=== PATIENT | female | born 1995 | race Caucasian/White ===

== ENCOUNTER → 2023-03-10 | Outpatient (CLI) | payer OTHER ==
[~2023-03-10] MED LIST: FLEXERIL 1010 MG/TAB PO; MOTRIN 800800 MG/TAB PO; PRENATAL TABLET PO; PRILOSEC 20MG20 MG PO; SUDAFED30 MG PO
--- NOTE | 2023-03-10 16:39 | NUR ---
Pt, Darby Tomas, presents to walk-in clinic with 3 week old baby girl, Viry Tomas, for a evaluation and concerns about Viry's feeding behaviors. Viry was born on [birth year] and weighed 8# 12.7oz (3989 gms). This family was seen on 02/27/23 for a consult and Viry weighted 8# 14.6oz at that time. basics, feeding, and spitting up concerns were addressed at that time. Today pt states she is having difficulty telling when Viry is done nursing as she often continues to give feeding cues even after falling asleep at the breast. She also struggles with Viry being gassy and spitting up. Today Viry weighs 9# 5.8oz (4246 gms). Pt breastfeeds Viry independantly, and after Bf she has a gain of 114 gms (4oz). Viry seems content, but does have several burps and eventually some spit up. Conversation with pt re: feeding behaviours, new parenting and infant care challenges. Pt reasurred and also encouraged to talk to OB provider about professional help for new parent worries. POC: Continue BF ad briana, working with burping and spitting as discussesd. F/U: As scheduled with physicians and walk-in BF clinic as desired. Questions invited and answered. Today
== END ==
LOC: LAC 14:12
DX: Z39.1 Encounter for care and examination of lactating mother (principal); Z71.89 Other specified counseling